=== PATIENT | female | born 1955 | race Caucasian/White ===

== ENCOUNTER 2020-04-21 16:41 | Inpatient (IN) | payer OTHER ==
[~2020-04-21] VITALS: Ht 162.6 cm; Wt 64.9 kg
[2020-04-22 04:04] LABS: HEMOGLOBIN 9.7 gm/dl (12.3-15.3); RED BLOOD COUNT 3.83 M/UL (4.00-5.10); WHITE BLOOD COUNT 9.6 K/UL (4.5-11.0)
[2020-04-22] MEDS ORDERED: ASPIRIN81 MG PO (14:57)
[2020-04-22] MEDS ORDERED: PLAVIX 75 MG TA75 MG PO (14:57)
[2020-04-22] MEDS ORDERED: LASIX20 MG PO (14:59)
[2020-04-22] MEDS ORDERED: LACTULOSE10 GM PO (15:00)
[2020-04-22] MEDS ORDERED: POTASSIUM CHLO20 ME2 PO (15:01)
[2020-04-22] MEDS ORDERED: SEROQUEL TAB 2525 MG PO (15:02)
[2020-04-22] MEDS ORDERED: THERA-M CAPLET1 EAC1 PO (15:05)
[2020-04-22] MEDS ORDERED: VITAMIN D21250 MCG PO (15:07)
[2020-04-22] MEDS ORDERED: TOPROL XL 25 MG25 MG PO (15:09)
[2020-04-22] MEDS ORDERED: PROTONIX 40 MG40 M1 PO (15:10)
[2020-04-22] MEDS ORDERED: MIDODRINE HCL2.5 MG PO (15:11)
[2020-04-22] MEDS ORDERED: HUMULIN R100 UNIT/1 INJ (15:12)
[2020-04-23 03:36] LABS: HEMOGLOBIN 9.1 gm/dl (12.3-15.3); RED BLOOD COUNT 3.65 M/UL (4.00-5.10); WHITE BLOOD COUNT 10.7 K/UL (4.5-11.0)
[2020-04-23 10:01] LABS: WBC (AUTOMATED) 238 (0-500)
[2020-04-23 10:02] LABS: MONONUCLEAR CELLS 63.4 (75-100); POLYMORPHONUCLEAR % 36.6 (0-25); RBC (AUTOMATED) 19200 (0-100000)
[2020-04-24 04:45] LABS: RED BLOOD COUNT 3.6 M/UL (4.00-5.10)
[2020-04-24 04:56] LABS: WHITE BLOOD COUNT 18.4 K/UL (4.5-11.0)
[2020-04-24 13:20] LABS: RED BLOOD COUNT 3.57 M/UL (4.00-5.10); WHITE BLOOD COUNT 19.2 K/UL (4.5-11.0)
--- NOTE | 2020-04-24 22:00 | NUR ---
Resting quietly in bed, complains of being thirsty, small ice chips given sparingly, with HOB elevated greater than 45 degrees. skyler well. freqent oral care and lip moisturizer
[2020-04-25 04:47] LABS: RED BLOOD COUNT 3.63 M/UL (4.00-5.10); WHITE BLOOD COUNT 18.6 K/UL (4.5-11.0)
--- NOTE | 2020-04-25 06:34 | NUR ---
Rested quietly throughout shift, denies complaints except for thirst, continues to skyler ice chips, vs remained stable, turned/repositioned/mouth care frequently, no acute distress noted
--- NOTE | 2020-04-25 19:00 | NUR ---
Assessment completed and documented, turned and repositioned frequently, patient asking for water frequently, ice chips given sparingly.
--- NOTE | 2020-04-25 23:30 | NUR ---
Repeat K+ 3.8 no further intervention needed
[2020-04-26 03:30] LABS: HEMOGLOBIN 8.7 gm/dl (12.3-15.3); RED BLOOD COUNT 3.51 M/UL (4.00-5.10); WHITE BLOOD COUNT 15.3 K/UL (4.5-11.0)
[2020-04-27 07:51] LABS: HEMOGLOBIN 8.6 gm/dl (12.3-15.3); RED BLOOD COUNT 3.43 M/UL (4.00-5.10); WHITE BLOOD COUNT 13.8 K/UL (4.5-11.0)
--- NOTE | 2020-04-27 13:23 | NUR ---
left message dr. minor voice mail r/t us ordered. [employer] wants a clarification of the order.
[2020-04-28 05:08] LABS: HEMOGLOBIN 8.4 gm/dl (12.3-15.3); RED BLOOD COUNT 3.52 M/UL (4.00-5.10); WHITE BLOOD COUNT 18.2 K/UL (4.5-11.0)
[2020-04-29 04:28] LABS: HEMOGLOBIN 8.6 gm/dl (12.3-15.3); RED BLOOD COUNT 3.44 M/UL (4.00-5.10); WHITE BLOOD COUNT 18.1 K/UL (4.5-11.0)
[2020-04-29 15:01] LABS: BODY FLUID SOURCE PLEURAL; MONONUCLEAR CELLS 54.1 (75-100); RBC (AUTOMATED) 1200 (0-100000); WBC (AUTOMATED) 353 (0-500)
[2020-04-29 15:02] LABS: POLYMORPHONUCLEAR % 45.9 (0-25)
[2020-04-30 04:49] LABS: HEMOGLOBIN 8.3 gm/dl (12.3-15.3); RED BLOOD COUNT 3.55 M/UL (4.00-5.10); WHITE BLOOD COUNT 17.7 K/UL (4.5-11.0)
[2020-05-02 08:09] LABS: HEMOGLOBIN 8.7 gm/dl (12.3-15.3); RED BLOOD COUNT 3.51 M/UL (4.00-5.10); WHITE BLOOD COUNT 17.6 K/UL (4.5-11.0)
[2020-05-03 06:15] LABS: HEMOGLOBIN 8.3 gm/dl (12.3-15.3); RED BLOOD COUNT 3.34 M/UL (4.00-5.10); WHITE BLOOD COUNT 15.3 K/UL (4.5-11.0)
[2020-05-04 15:13] LABS: RED BLOOD COUNT 3.2 M/UL (4.00-5.10); WHITE BLOOD COUNT 14.2 K/UL (4.5-11.0)
[2020-05-05 05:58] LABS: RED BLOOD COUNT 2.92 M/UL (4.00-5.10)
[2020-05-05 06:37] LABS: WHITE BLOOD COUNT 9.9 K/UL (4.5-11.0)
--- NOTE | 2020-05-05 13:09 | NUR ---
1130: SPO2 CHECKED ON ROOM AIR AND NOTED AT 87 - 88%, PER CASE MANAGEMENT REQUEST. PLACED PATIENT BACK ON OXYGEN PER ORDER.
[2020-05-06 05:17] LABS: WHITE BLOOD COUNT 10.2 K/UL (4.5-11.0)
[2020-05-06 05:29] LABS: HEMOGLOBIN 11.6 gm/dl (12.3-15.3); RED BLOOD COUNT 4.74 M/UL (4.00-5.10)
[2020-05-06] MEDS ORDERED: FUROSEMIDE40 MG PO (11:39)
[2020-05-06] MEDS ORDERED: DIGOXIN125 MCG PO (11:39)
[2020-05-06] MEDS ORDERED: FERROUS SULFAT325 M2 PO (11:39)
[2020-05-06] MEDS ORDERED: DOXYCYCLINE HY100 MG PO (11:39)
[2020-05-06] MEDS ORDERED: DRONABINOL2.5 MG PO (11:39)
[2020-05-06] MEDS ORDERED: ALDACTONE 25MG25 MG PO (11:39)
[2020-05-06] MEDS ORDERED: MIDODRINE HCL2.5 MG PO (11:39)
[2020-05-06] MEDS ORDERED: FLAGYL500 MG PO (11:39)
[2020-05-07 06:55] LABS: HEMOGLOBIN 11.5 gm/dl (12.3-15.3); RED BLOOD COUNT 4.66 M/UL (4.00-5.10); WHITE BLOOD COUNT 8.4 K/UL (4.5-11.0)
[2020-05-08 02:28] LABS: HEMOGLOBIN 11.4 gm/dl (12.3-15.3); RED BLOOD COUNT 4.66 M/UL (4.00-5.10); WHITE BLOOD COUNT 7.6 K/UL (4.5-11.0)
[2020-05-09 07:35] LABS: HEMOGLOBIN 10.6 gm/dl (12.3-15.3); RED BLOOD COUNT 4.31 M/UL (4.00-5.10); WHITE BLOOD COUNT 6.1 K/UL (4.5-11.0)
[2020-05-10 02:50] LABS: HEMOGLOBIN 10.8 gm/dl (12.3-15.3); RED BLOOD COUNT 4.39 M/UL (4.00-5.10)
[2020-05-11 02:34] LABS: HEMOGLOBIN 10.9 gm/dl (12.3-15.3); RED BLOOD COUNT 4.46 M/UL (4.00-5.10); WHITE BLOOD COUNT 7.2 K/UL (4.5-11.0)
[2020-05-12 03:28] LABS: HEMOGLOBIN 10.9 gm/dl (12.3-15.3); RED BLOOD COUNT 4.38 M/UL (4.00-5.10)
[2020-05-12 03:30] LABS: WHITE BLOOD COUNT 10.1 K/UL (4.5-11.0)
[2020-05-12 03:52] LABS: BUN/CREATININE RATIO 52 (0-10)
[2020-05-14 05:25] LABS: HEMOGLOBIN 10.1 gm/dl (12.3-15.3); RED BLOOD COUNT 4.16 M/UL (4.00-5.10); WHITE BLOOD COUNT 10.4 K/UL (4.5-11.0)
[2020-05-14 05:52] LABS: BUN/CREATININE RATIO 48 (0-10)
[2020-05-15 12:26] LABS: HEMOGLOBIN 10.3 gm/dl (12.3-15.3); RED BLOOD COUNT 4.22 M/UL (4.00-5.10); WHITE BLOOD COUNT 9.8 K/UL (4.5-11.0)
[2020-05-16 03:27] LABS: RED BLOOD COUNT 4.14 M/UL (4.00-5.10); WHITE BLOOD COUNT 9.4 K/UL (4.5-11.0)
[2020-05-17 18:44] LABS: HEMOGLOBIN 10.3 gm/dl (12.3-15.3); RED BLOOD COUNT 4.12 M/UL (4.00-5.10); WHITE BLOOD COUNT 11.4 K/UL (4.5-11.0)
[2020-05-18 04:11] LABS: HEMOGLOBIN 10.6 gm/dl (12.3-15.3); RED BLOOD COUNT 4.22 M/UL (4.00-5.10)
[2020-05-18 04:12] LABS: WHITE BLOOD COUNT 8.2 K/UL (4.5-11.0)
[2020-05-19 03:31] LABS: HEMOGLOBIN 10.4 gm/dl (12.3-15.3); RED BLOOD COUNT 4.15 M/UL (4.00-5.10)
[2020-05-19 03:32] LABS: WHITE BLOOD COUNT 11.1 K/UL (4.5-11.0)
[2020-05-20 03:57] LABS: HEMOGLOBIN 10.2 gm/dl (12.3-15.3); RED BLOOD COUNT 4.08 M/UL (4.00-5.10); WHITE BLOOD COUNT 10.8 K/UL (4.5-11.0)
[2020-05-21 02:17] LABS: HEMOGLOBIN 9.9 gm/dl (12.3-15.3); RED BLOOD COUNT 3.93 M/UL (4.00-5.10); WHITE BLOOD COUNT 10.3 K/UL (4.5-11.0)
[2020-05-21 18:35] LABS: HEMOGLOBIN 10.6 gm/dl (12.3-15.3); RED BLOOD COUNT 4.19 M/UL (4.00-5.10); WHITE BLOOD COUNT 11.3 K/UL (4.5-11.0)
[2020-05-23 05:38] LABS: HEMOGLOBIN 10.4 gm/dl (12.3-15.3); RED BLOOD COUNT 4.09 M/UL (4.00-5.10); WHITE BLOOD COUNT 8.5 K/UL (4.5-11.0)
[2020-05-25] MEDS ORDERED: NEO-POLYCIN EY3.5 GM TOP (16:01)
== END 2020-05-25 21:22 | DRG 871 ==
LOC: MED SURG 4 04-22 00:08 → CCU 04-22 00:08 → MED SURG 4 04-26 14:50
PROVIDERS: Internal Medicine; Internal Medicine Infectious Disease; Internal Medicine Nephrology; Internal Medicine Pulmonary Disease; ADMIT Internal Medicine
PROC: 02H633Z Insertion of Infusion Device into Right Atrium, Percutaneous Approach (ICD-10-PCS; 2020-04-22)
PROC: B548ZZA Ultrasonography of Superior Vena Cava, Guidance (ICD-10-PCS; 2020-04-22)
PROC: 0BH17EZ Insertion of Endotracheal Airway into Trachea, Via Natural or Artificial Opening (ICD-10-PCS; 2020-04-22)
PROC: 5A1935Z Respiratory Ventilation, Less than 24 Consecutive Hours (ICD-10-PCS; 2020-04-22)
PROC: 3E02340 Introduction of Influenza Vaccine into Muscle, Percutaneous Approach (ICD-10-PCS; 2020-04-22)
PROC: 0W9B30Z Drainage of Left Pleural Cavity with Drainage Device, Percutaneous Approach (ICD-10-PCS; principal; 2020-04-23)
PROC: 30233N1 Transfusion of Nonautologous Red Blood Cells into Peripheral Vein, Percutaneous Approach (ICD-10-PCS; 2020-05-05)
PROC: 30233R1 Transfusion of Nonautologous Platelets into Peripheral Vein, Percutaneous Approach (ICD-10-PCS; 2020-05-08)
DX: A41.9 Sepsis, unspecified organism (principal); I50.43 Acute on chronic combined systolic (congestive) and diastolic (congestive) heart failure; J96.21 Acute and chronic respiratory failure with hypoxia; G92 Toxic encephalopathy; R65.21 Severe sepsis with septic shock; N17.0 Acute kidney failure with tubular necrosis; J18.9 Pneumonia, unspecified organism; R53.2 Functional quadriplegia; N39.0 Urinary tract infection, site not specified; D62 Acute posthemorrhagic anemia; I42.0 Dilated cardiomyopathy; I13.0 Hypertensive heart and chronic kidney disease with heart failure and stage 1 through stage 4 chronic kidney disease, or unspecified chronic kidney disease; E87.1 Hypo-osmolality and hyponatremia; E87.3 Alkalosis; E87.2 Acidosis; Z20.822 Contact with and (suspected) exposure to COVID-19; N18.30 Chronic kidney disease, stage 3 unspecified; E87.5 Hyperkalemia; E78.5 Hyperlipidemia, unspecified; D72.829 Elevated white blood cell count, unspecified; R13.10 Dysphagia, unspecified; E11.65 Type 2 diabetes mellitus with hyperglycemia; R60.1 Generalized edema; E66.01 Morbid (severe) obesity due to excess calories; E11.22 Type 2 diabetes mellitus with diabetic chronic kidney disease; J44.9 Chronic obstructive pulmonary disease, unspecified; D69.6 Thrombocytopenia, unspecified; I25.10 Atherosclerotic heart disease of native coronary artery without angina pectoris; L08.9 Local infection of the skin and subcutaneous tissue, unspecified; Z66 Do not resuscitate; E55.9 Vitamin D deficiency, unspecified; Z88.6 Allergy status to analgesic agent; Z88.1 Allergy status to other antibiotic agents; Z88.0 Allergy status to penicillin; Z88.8 Allergy status to other drugs, medicaments and biological substances; Z79.82 Long term (current) use of aspirin; Z79.01 Long term (current) use of anticoagulants; Z79.899 Other long term (current) drug therapy; Z68.32 Body mass index [BMI] 32.0-32.9, adult; Z86.73 Personal history of transient ischemic attack (TIA), and cerebral infarction without residual deficits; Z23 Encounter for immunization
CPT/HCPCS: ECHO; 36415; 36430; 36600; 70450; 70544; 70551; 71045; 74230; 76705; 80048; 80053; 81001; 82272; 82436; 82550; 82553; 82570; 82728; 82803; 82962; 83540; 83550; 83605; 83735; 83880; 84100; 84132; 84133; 84156; 84300; 84484; 85025; 85027; 85610; 85730; 86140; 86850; 86900; 86901; 86920; 87040; 87070; 87077; 87086; 87186; 87205; 89051; 90686; 92526; 92610; 92611-GN; 93005; 93306; 94002; 94003; 94640; 94664; 94760; 97110; 97110-GP-CQ; 97112; 97163; 97166; 97530; 97530-GP-CQ; A6212; C1751; C9113; G0008; J0610; J1120; J1205; J1644; J1940; J2020; J2185; J2704; J2997; J3475; J3480; J7070; P9016; P9035; P9037; P9047; U0002